=== PATIENT | male | born 1995 | race Two or more races ===

== ENCOUNTER 2025-02-23 08:56 | Day surgery (SDC) | payer MEDICAID ==
[2025-02-22 09:37] LABS: Urine Protein, UAD Negative (Negative)
[2025-02-22 09:42] LABS: Hematocrit 47.1 % (41.0-53.0); Hemoglobin 16.7 g/dL (13.5-17.5); Mean Corpuscular Hemoglobin 31.8 pg (28.0-32.0); Mean Corpuscular Volume 89.8 fL (80.0-100.0); Nucleated Red Blood Cells % 0.1 %
[2025-02-22 09:49] LABS: INR 0.97 (0.9-1.15); Partial Thromboplastin Time 25.0 SEC (24.5-34.5); Prothrombin Time 10.3 sec (9.3-11.8)
[2025-02-22 09:53] LABS: Alanine Aminotransferase 27 U/L (7-40); Albumin 4.6 g/dL (3.2-4.8); Alkaline Phosphatase 100 U/L (46-116); Anion Gap 7 (5-15); BUN/Creatinine Ratio 6.1 (10.0-20.0); Calcium 9.2 mg/dL (8.7-10.4); Chloride 99 mmol/L (98-107); Potassium 3.8 mmol/L (3.5-5.1); Sodium 138 mmol/L (136-145); Total Protein 7.3 g/dL (5.7-8.2)
[2025-02-22 09:54] LABS: Bilirubin, Total 0.7 mg/dL (0.2-1.0); Blood Urea Nitrogen 7 mg/dL (9-23); Carbon Dioxide 32 mmol/L (20-31); Glucose 152 mg/dL (74-106)
[~2025-02-23] VITALS: Ht 167.6 cm; Wt 113.4 kg
[~2025-02-23 08:56] MED LIST: LISI20TA56 PO
[2025-02-23] MEDS ORDERED: fentaNYL CITRATE 100 MCG/2 ML VL ONE (12:09)
[2025-02-23] MEDS ORDERED: HYDROmorphone HCL 2 MG/ML VL/or syr ONE (12:10)
[2025-02-23] MEDS ORDERED: PROPOFOL 10 MG/ML 20 ML IV ONE (12:10)
[2025-02-23] MEDS: ceFAZolin 2 GM/D5W50ml 50 ML IV ONE (12:20)
[2025-02-23] MEDS ORDERED: ONDANSETRON HCL 4 MG/2 ML VIAL ONE (12:29)
[2025-02-23] MEDS: LIDOCAINE W/ EPINEPHRINE 1% 20ML VIAL ONE (13:00)
[2025-02-23] MEDS: BUPIVACAINE 0.5% P/F INJ 10 ML VIAL ONE (13:00)
[2025-02-23 13:06] VITALS: PULSE 92; RESP 12; TEMP 97.8; O2SAT 96
[2025-02-23 13:16] VITALS: PULSE 87; RESP 12; O2SAT 97
[2025-02-23 13:26] VITALS: PULSE 93; RESP 12; O2SAT 95
[2025-02-23 13:51] VITALS: BP 131/68; PULSE 94; RESP 13; O2SAT 96
--- NOTE | 2025-02-23 15:13 | DVHOP2 ---
Operative Report - 2 Report Details Date: 02/23/25 Preop Diagnosis: SEBACEOUS CYST SCALP Postop Diagnosis: SEBACEOUS CYST SCALP Surgeon: Dr. Michael Briceno, Candida Flynn, Anesthesiologist: Dr. Myers Anesthesia: General Consent: The patient was informed of the risks and benefits of the procedure. These include but are not limited to complications of anesthesia, postoperative infection, incomplete relief of symptoms, recurrence of symptoms, damage to blood vessels, nerves and tendons, deep venous thrombosis, pulmonary embolism and possible need for repeat surgery in the future. Name of Procedure Performed excision of scalp sebaceous cyst Procedure Details Procedure Details: Under the supervision of Dr. Briceno, the patient was taken to the OR and placed in a semi fowlers position. The scalp was prepped and draped in sterile fashion. Prior to incision the area was infiltrated with 1:1 0.25% Marcaine and 1% lidocaine. An incision was made and the entire contents of mass was expelled and sent to pathology. The area was irrigted and skin closure was accomplished with Prolene. Bacitracin ointment and dressings were applied. Sponge , needle and b lade count were correct. Patient was transferred to recovery with out incident. 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
== END 2025-02-23 14:06 | disposition home or self-care (01) ==
LOC: SUR 08:56
PROVIDERS: ATTEND Surgery
DX: L72.11 Pilar cyst (principal); I10 Essential (primary) hypertension; E66.9 Obesity, unspecified; Z68.41 Body mass index [BMI] 40.0-44.9, adult
CPT/HCPCS: 11422; 36415; 80053; 81001; 85025; 85610; 85730; 88305; J0690; J1171; J2405; J2704; J3010; J3490